=== PATIENT | male | born 1955 | race Caucasian/White ===

== ENCOUNTER 2016-07-03 20:40 | Emergency (ER) | payer OTHER | END 2016-07-03 21:59 | disposition home or self-care (01) | LOC: ER1 20:40 | DX: S61.012A Laceration without foreign body of left thumb without damage to nail, initial encounter (principal); W29.8XXA Contact with other powered hand tools and household machinery, initial encounter; Z79.82 Long term (current) use of aspirin; Z79.899 Other long term (current) drug therapy | CPT/HCPCS: 99283 ==